=== PATIENT | male | born 1990 | race Caucasian/White ===

== ENCOUNTER 2016-10-01 01:24 | Emergency (ER) | payer SELFPAY ==
[~2016-10-01] VITALS: Ht 177.8 cm; Wt 84.5 kg
[2016-10-01 01:49] VITALS: Ht 177.8 cm; Wt 84.5 kg
--- NOTE | 2016-10-01 02:51 | ERD ---
ER Documentation Chief Complaint Date/Time DATE: 10/01/16 TIME: 02:49 Chief Complaint PT W/ SZ DISORDER WOKE UP IN ALLEY 2-HOURS AGO, SUSPECT SZ; PAINFUL TOE HPI This is a 26-year-old male with a history of seizure disorder workup other grad. Patient has a history of seizure disorder. Has been noncompliant with his medications. No tongue biting no incontinence no other current complaints ROS All systems reviewed and are negative except as per history of present illness. Allergies Allergies: Coded Allergies: No Known Allergy (Unverified , 10/01/16) Physical Exam Vitals Vital Signs Date Time Temp Pulse Resp B/P Pulse Ox O2 Delivery O2 Flow Rate FiO2 10/01/16 01:49 98.4 113 24 133/60 100 Physical Exam Const: [] Head: Atraumatic Eyes: Normal Conjunctiva ENT: Normal External Ears, Nose and Mouth. Neck: Full range of motion..~ No meningismus. Resp: Clear to auscultation bilaterally Cardio: Regular rate and rhythm, no murmurs Abd: Soft, non tender, non distended. Normal bowel sounds Skin: No petechiae or rashes Back: No midline or flank tenderness Ext: No cyanosis, or edema Neur: Awake and alert Psych: Normal Mood and Affect Results 24 hrs Current Medications Medications (Trade) Dose Ordered Sig/Carlos Route PRN Reason Start Time Stop Time Status Last Admin Dose Admin Lorazepam (Ativan) 1 mg ONCE ONCE PO 10/01/16 03:00 10/01/16 03:01 Quetiapine Fumarate (Seroquel) 100 mg ONCE ONCE PO 10/01/16 03:00 10/01/16 03:01 Gabapentin (Neurontin) 300 mg ONCE ONCE PO 10/01/16 03:00 10/01/16 03:01 Procedures/MDM Medical decision-making: This is a 26-year-old male here for recurrent seizure disorder. Is been noncompliant with his meds. Patient given a dose of his medications. Patient will be discharged home. This is likely benzodiazepine withdrawal syndrome as the patient is on Ativan chronically for anxiety. Patient does have history of seizure disorder but states that he is not on any antiseizure medications just Ativan. Patient will be discharged home. Offered homeless resources. Patient refused. Departure Diagnosis: Primary Impression: Seizure disorder Condition: Stable JOSEPH BENÍTEZ Oct 01, 2016 02:51
[2016-10-01] MEDS ORDERED: QUET300T13 PO (02:52)
[2016-10-01] MEDS ORDERED: GABA300C16 PO (02:52)
[2016-10-01] MEDS ORDERED: LORA1TAB PO (02:52)
[2016-10-01] MEDS ORDERED: QUETIAPINE 100 MG TAB PO ONE (03:00)
[2016-10-01] MEDS ORDERED: LORAZEPAM 1 MG TAB PO ONE (03:00)
[2016-10-01] MEDS ORDERED: GABAPENTIN 300 MG CAP PO ONE (03:00)
[2016-10-01] MEDS ORDERED: LORAZEPAM 2 MG INJ ONE (03:11)
[2016-10-01] MEDS ORDERED: LORAZEPAM 2 MG INJ IM ONE (03:30)
[2016-10-01 04:30] VITALS: TEMP 98.3
[2016-10-01 05:25] VITALS: BP 159/84
[2016-10-01 07:24] VITALS: RESP 12
[2016-10-01 09:22] VITALS: PULSE 88
[2016-10-02] MEDS ORDERED: ELIM TOP (06:30)
[2016-10-02] MEDS ORDERED: BACTDS PO (07:06)
[2016-10-02] MEDS ORDERED: CEPH-443 PO (07:06)
[2016-10-02] MEDS ORDERED: MUPI22OI2 TOP (07:06)
== END 2016-10-01 10:04 | disposition home or self-care (01) ==
LOC: E/R 01:24
DX: G40.909 Epilepsy, unspecified, not intractable, without status epilepticus (principal); R40.2142 Coma scale, eyes open, spontaneous, at arrival to emergency department; R40.2252 Coma scale, best verbal response, oriented, at arrival to emergency department; R40.2362 Coma scale, best motor response, obeys commands, at arrival to emergency department
CPT/HCPCS: 96372; J2060

== ENCOUNTER 2016-10-02 05:46 | Emergency (ER) | payer BC ==
[~2016-10-02] VITALS: Ht 185.4 cm; Wt 84.5 kg
[~2016-10-02 05:46] MED LIST: GABA300C16 PO; LORA1TAB PO; QUET300T13 PO
[2016-10-02 05:57] VITALS: Ht 185.4 cm; Wt 84.5 kg
[2016-10-02] MEDS ORDERED: ELIM TOP (06:30)
--- NOTE | 2016-10-02 06:49 | ERD ---
ER Documentation Chief Complaint Date/Time DATE: 10/02/16 TIME: 06:46 Chief Complaint Rash with linear pattern HPI 26-year-old male history of benzodiazepine withdrawal seizures recently discharged, homeless, with history of heroin abuse comes emergency department with a rash to his hands as well as his left upper extremity. Patient states that he did use a needle to inject heroin into his left forearm and since then there has been increasing erythema and pain. He does have a pruritic rash to the dorsal aspect of his hands as well. He denies any fevers or chills. He does not recall his last tetanus shot. Lastly, patient complains of left fifth toe pain, he states that he jammed into a wall 2 days ago. There is pain at the proximal phalanx, nonradiating. ROS All systems reviewed and are negative except as per history of present illness. Medications Home Meds Active Scripts Mupirocin* (Bactroban*) 2% -22 Gram Oint...g., 1 APPLIC TOP BID for 7 Days, EA Prov:JULIA MARSH PA-C 10/02/16 Sulfamethoxazole-Trimethoprim* (Bactrim* DS) 800-160 Mg Tab, 1 TAB PO BID for 10 Days, TAB Prov:JULIA MARSH PA-C 10/02/16 Cephalexin* (Keflex*) 500 Mg Capsule, 500 MG PO QID for 10 Days, CAP Prov:JULIA MARSH PA-C 10/02/16 Permethrin* (Elimite*) 5% Cr, 1 APPLIC TOP ONCE, #1 TUB Prov:JULIA MARSH PA-C 10/02/16 Gabapentin* (Gabapentin*) 300 Mg Capsule, 300 MG PO TID, #90 CAP Prov:JOSEPH BENÍTEZ 10/01/16 Quetiapine Fumarate* (Seroquel*) 300 Mg Tablet, 300 MG PO BID, #60 TAB Prov:JOSEPH BENÍTEZ 10/01/16 Lorazepam* (Lorazepam*) 1 Mg Tablet, 1 MG PO Q8H Y for ANXIETY, #10 TAB Prov:JOSEPH BENÍTEZ 10/01/16 Allergies Allergies: Coded Allergies: lamotrigine (Verified Allergy, Intermediate, Rash, 10/02/16) PMhx/Soc Medical and Surgical Hx: pt denies Medical Hx Hx Substance Use: Yes (heroin) Physical Exam Vitals Vital Signs Date Time Temp Pulse Resp B/P Pulse Ox O2 Delivery O2 Flow Rate FiO2 10/02/16 05:57 98.8 121 18 138/80 100 Physical Exam General: Well-developed, well-nourished. The patient appears in no acute distress. HEENT: Head is normocephalic, atraumatic. No scleral icterus. Neck: Supple. Nontender. Lungs: Clear to auscultation. Normal air movement. Heart: Regular rate and rhythm. S1 and S2 are normal. No murmurs, gallops, or rubs. Abdomen: Nondistended. Extremities: No clubbing or cyanosis. Moving extremities x 4. No weakness. Neurologic: Alert and oriented 3. No focal deficits. Normal speech and gait. Skin: 2 lesions that are circular, shallow ulcer seen in the left forearm, there is one in the proximal and one at the mid forearm approximately each 1.5 cm. There is surrounding erythema. It does not go past the elbow or the wrist , and fingers are uninvolved. Capillary refill less than 2 seconds. There is mild induration throughout, no fluctuance. Radial pulses 2+ bilaterally. There are scab-like wounds at the dorsal aspect of bilateral hands. Results 24 hrs Current Medications Medications (Trade) Dose Ordered Sig/Carlos Route PRN Reason Start Time Stop Time Status Last Admin Dose Admin Diphtheria/ Tetanus/Acell Pertussis (Adacel) 0.5 ml ONCE ONCE IM* 10/02/16 07:00 10/02/16 07:01 DC 10/02/16 06:56 Bacitracin (Bacitracin Oint (Ud)) 1 applic ONCE ONCE TOP 10/02/16 07:00 10/02/16 07:01 DC Ceftriaxone Sodium (Rocephin) 1 gm ONCE ONCE IM 10/02/16 07:00 10/02/16 07:01 DC 10/02/16 06:55 Lidocaine (Xylocaine 1% (Mdv) 20 ml) 2 ml ONCE ONCE IM 10/02/16 07:00 10/02/16 07:01 DC 10/02/16 06:55 PROCEDURE: XR left toes. CLINICAL INDICATION: Left toe pain following injury. TECHNIQUE: AP and lateral views of the left toes are available for review COMPARISON: No prior studies are available for comparison. FINDINGS: There is normal mineralization and alignment. There is a nondisplaced fracture of the left fifth proximal phalanx. The joints are normal. The soft tissues are unremarkable. IMPRESSION: Limited two-view examination. Nondisplaced fracture of the left fifth proximal phalanx. RPTAT: HH .Trisha Bennett MD, Date Time Electronically viewed and signed by .Trisha Bennett MD, on 10/02/2016 08 :11 .G/ Procedures/MDM ED course: Wound care was done to his left forearm, bacitracin and clean dressing were applied. Patient did not recall his last tetanus shot, he was given a Tdap update. He was also given Rocephin 1 g IM. patient's left 5th toe was carter taped and he was placed in a post op shoe. MDM: 26-year-old male comes in with cellulitis secondary to IVDA. Cellulitis appears to be secondary to those lesions, likely from introduction of a needle to the skin that occurred 2 days ago. Patient's vitals were reviewed, he is afebrile, initially in intake patient was very restless I could explain his tachycardia. We rechecked his pulse rate was 94 in the emergency department. There are no signs of any limb threatening process, she was given strict ER return precautions to return if the erythema, swelling or pain were to increase , or if he develops a fever. He also complained of left 5th pain, secondary to trauma. There is an acute closed fracture of the proximal phalanx of the fifth toe that is isolated. No signs of any infection, dislocation. Departure Diagnosis: Primary Impression: Scabies Additional Impressions: Cellulitis Heroin abuse Fracture of toe, closed Condition: Good Patient Instructions: Nayeli Additional Instructions: Call your primary care doctor TOMORROW for an appointment during the next 1-2 days.See the doctor sooner or return here if your condition worsens before your appointment time. JULIA MARSH PA-C Oct 02, 2016 06:49
[2016-10-02] MEDS ORDERED: CEFTRIAXONE 1 GM INJ IM ONE (07:00)
[2016-10-02] MEDS ORDERED: DIPHTH/TET/ACEL PERTUSS (ADULT) 0.5 ML VIAL IM* ONE (07:00)
[2016-10-02] MEDS ORDERED: LIDOCAINE 1% (MDV) 20 ML INJ IM ONE (07:00)
[2016-10-02] MEDS ORDERED: BACITRACIN 0.9 GM OINT TOP ONE (07:00)
[2016-10-02] MEDS ORDERED: BACTDS PO (07:06)
[2016-10-02] MEDS ORDERED: CEPH-443 PO (07:06)
[2016-10-02] MEDS ORDERED: MUPI22OI2 TOP (07:06)
--- NOTE | 2016-10-02 08:11 | RADRPT ---
PROCEDURE: XR left toes. CLINICAL INDICATION: Left toe pain following injury. TECHNIQUE: AP and lateral views of the left toes are available for review COMPARISON: No prior studies are available for comparison. FINDINGS: There is normal mineralization and alignment. There is a nondisplaced fracture of the left fifth pro ximal phalanx. The joints are normal. The soft tissues are unremarkable. IMPRESSION: Limited two-view examination. Nondisplaced fracture of the left fifth proximal phalanx. RPTAT: HH .Trisha Bennett MD, MD Date Time Electronically viewed and signed by .Trisha Bennett MD, on 10/02/2016 08:11 .G/
== END 2016-10-02 08:32 | disposition home or self-care (01) ==
LOC: FTE 05:46
DX: B86 Scabies (principal); L03.114 Cellulitis of left upper limb; F11.10 Opioid abuse, uncomplicated; S92.515A Nondisplaced fracture of proximal phalanx of left lesser toe(s), initial encounter for closed fracture; F17.210 Nicotine dependence, cigarettes, uncomplicated; W23.1XXA Caught, crushed, jammed, or pinched between stationary objects, initial encounter; Y92.9 Unspecified place or not applicable; Z23 Encounter for immunization
CPT/HCPCS: 73660; 90471; 90715; 96372; 99284; J0696

== ENCOUNTER 2016-10-16 01:52 | Emergency (ER) | payer BC ==
[~2016-10-16] VITALS: Ht 182.9 cm; Wt 80.5 kg
[~2016-10-16 01:52] MED LIST changes: +BACTDS PO; +CEPH-443 PO; +ELIM TOP; +MUPI22OI2 TOP
[2016-10-16 02:05] VITALS: Ht 182.9 cm; Wt 80.5 kg
[2016-10-16] MEDS ORDERED: LEVE-5 PO (06:36)
--- NOTE | 2016-10-16 06:37 | ERD ---
ER Documentation Chief Complaint Date/Time DATE: 10/16/16 TIME: 06:37 Chief Complaint Seizure 1 hour ago and swelling on the foor HPI 26-year-old man with a history of benzodiazepine abuse and benzodiazepine withdrawal seizure states he had a seizure 6 days ago, he denies having a seizure today or even yesterday. He states he just wants to sleep a little in the emergency department and states he used to use lamotrigine and Ativan for seizure disorder. He denies fevers or chills, no chest pain or shortness of breath, no recent tongue injury, no recent loss of bowel or bladder control. ROS All systems reviewed and are negative except as per history of present illness. Medications Home Meds Active Scripts Levetiracetam* (Keppra*) 500 Mg Tablet, 500 MG PO BID, #60 TAB Prov:BRYON CARRASQUILLO MD 10/16/16 Mupirocin* (Bactroban*) 2% -22 Gram Oint...g., 1 APPLIC TOP BID for 7 Days, EA Prov:JULIA MARSH PA-C 10/02/16 Sulfamethoxazole-Trimethoprim* (Bactrim* DS) 800-160 Mg Tab, 1 TAB PO BID for 10 Days, TAB Prov:JULIA MARSH PA-C 10/02/16 Cephalexin* (Keflex*) 500 Mg Capsule, 500 MG PO QID for 10 Days, CAP Prov:JULIA MARSH PA-C 10/02/16 Permethrin* (Elimite*) 5% Cr, 1 APPLIC TOP ONCE, #1 TUB Prov:JULIA MARSH PA-C 10/02/16 Gabapentin* (Gabapentin*) 300 Mg Capsule, 300 MG PO TID, #90 CAP Prov:JOSEPH BENÍTEZ 10/01/16 Quetiapine Fumarate* (Seroquel*) 300 Mg Tablet, 300 MG PO BID, #60 TAB Prov:JOSEPH BENÍTEZ 10/01/16 Lorazepam* (Lorazepam*) 1 Mg Tablet, 1 MG PO Q8H Y for ANXIETY, #10 TAB Prov:JOSEPH BENÍTEZ 10/01/16 Allergies Allergies: Coded Allergies: lamotrigine (Verified Allergy, Intermediate, Rash, 10/02/16) PMhx/Soc Benzodiazepine and heroin abuse, previous withdrawal seizures, previous scabies Medical and Surgical Hx: pt denies Surgical Hx Hx Neurological Disorder: Yes ("seizures" manifested as episodes of sweating w/ o LOC) Hx Psychiatric Problems: Yes (anxiety, depression) Hx Miscellaneous Medical Probl: Yes (heroin abuse) Hx Alcohol Use: No Hx Substance Use: Yes (heroin-last used 2 days ago) Hx Tobacco Use: Yes Smoking Status: Current every day smoker FmHx Family History: No diabetes Physical Exam Vitals Vital Signs Date Time Temp Pulse Resp B/P Pulse Ox O2 Delivery O2 Flow Rate FiO2 10/16/16 06:59 97.9 75 18 145/67 100 Room Air 10/16/16 02:05 97.2 82 20 139/92 98 Physical Exam GENERAL: Well-developed, well-nourished, well-hydrated, in no apparent distress , looks nontoxic in appearance, currently does not appear to be postictal HEENT: Moist mucous membranes, pink conjunctiva, no cervical spine tenderness or step-off deformities, no goiter, no jaundice or icterus, extraocular movements intact without pain. No submandibular induration, and no pharyngeal erythema NEURO: Alert and oriented 3, cranial nerves II through XII intact bilaterally, pupils equal round reactive to light, no focal deficits or facial asymmetry, sensation intact distally Strength 5/5 in upper and lower extremities bilaterally CARDIAC: Regular rate and rhythm, no murmurs rubs or gallops LUNGS: Clear bilaterally no wheezing crackles or stridor ABDOMEN: Soft nontender, no guarding, no rigidity, no rebound, no psoas sign no obturator sign. Normoactive bowel sounds SKIN: Warm and dry to touch, no abrasions, contusions, or hematomas, no lacerations, no ecchymosis, no target lesions, and without ulcers EXTREMITIES: No clubbing cyanosis or edema, calves are bilaterally symmetrical, no Homans sign, no popliteal cord sign. Distal pulses equal and bilateral PSYCH: Normal affect without agitation or irritability Results 24 hrs Current Medications Medications (Trade) Dose Ordered Sig/Acrlos Route PRN Reason Start Time Stop Time Status Last Admin Dose Admin Levetiracetam (Keppra) 500 mg ONCE ONCE PO 10/16/16 07:00 10/16/16 07:00 DC 10/16/16 06:49 Procedures/MDM Patient likely had a seizure today although he states he had one only 6 days ago and has one per month usually associated with benzodiazepine withdrawal, he has a long history of benzodiazepine abuse. He is unsure of what medications he used to take I will prescribe him Keppra daily, until he follows up with his PMD, as my initial antiepileptic management. Differential diagnoses considered, included but not limited to acute coronary syndrome, pulmonary embolism, aortic dissection, abdominal aortic aneurysm, sepsis, stroke, meningitis, encephalitis, pneumonia, appendicitis, cholecystitis , bowel obstruction, pyelonephritis, nephrolithiasis, cystitis, as well as metabolic, hematologic, and electrolyte abnormalities. As well as abscess, cellulitis, fractures, and dislocations. Patient feels much better at this time, and vital signs are normal, symptoms have improved. I did give strict instructions to return to the ED if symptoms continue or worsen, patient will otherwise follow-up with primary care physician. Patient understood instructions and agreed to plan. Departure Diagnosis: Primary Impression: Benzodiazepine abuse Additional Impression: Withdrawal seizures Complication of substance-induced condition: uncomplicated Qualified Code: F19.230 - Withdrawal seizures, uncomplicated Condition: Good Patient Instructions: Benzodiazepine Withdrawal BRYON CARRASQUILLO MD Oct 16, 2016 06:37
[2016-10-16 06:59] VITALS: BP 145/67; PULSE 75; RESP 18; TEMP 97.9
[2016-10-16] MEDS ORDERED: LEVETIRACETAM 500 MG TAB PO ONE (07:00)
== END 2016-10-16 07:00 | disposition home or self-care (01) ==
LOC: E/R 01:52
DX: F13.120 Sedative, hypnotic or anxiolytic abuse with intoxication, uncomplicated (principal); F19.230 Other psychoactive substance dependence with withdrawal, uncomplicated; F17.210 Nicotine dependence, cigarettes, uncomplicated; R40.2142 Coma scale, eyes open, spontaneous, at arrival to emergency department; R40.2362 Coma scale, best motor response, obeys commands, at arrival to emergency department; R40.2252 Coma scale, best verbal response, oriented, at arrival to emergency department
CPT/HCPCS: 99283